=== PATIENT | female | born 1960 | race Caucasian/White ===

== ENCOUNTER 2018-11-20 23:58 | Emergency (ER) | payer BC ==
[~2018-11-20] VITALS: Ht 152.4 cm; Wt 99.8 kg
[2018-11-21 00:03] VITALS: BP 150/78
--- NOTE | 2018-11-21 00:03 | NUR ---
TO BED #09 AMBULATORY
--- NOTE | 2018-11-21 00:15 | NUR ---
PT BIB DAUGHTER C/O COUGHING AND SOB X2 DAYS. PT STATES SUDDEN ONSET OF PRODUCTIVE COUGHING W/ THIN GREEN MUCOUS STARTED YESTERDAY, PT STATES THE CHANGES IN THE WHEATHER EXACERBATES HER ASHTMA/COUGHING. PT STATES 0/10 PAIN AT THIS TIME, DENIES N/V/D, OR CP. PT SPO2 AT BEDSIDE MONITOR WAS 89%, PATIENT PLACED ON 3L NC AT THIS TIME, SATURATION UP TO 96%. --AUDIBLE WHEEZING BL. BREATHING EQUAL AND LABORED. TACHYCARDIC AT 133. PT IN GOWN, IN BED; BED IN LOWER LOCKED POSITION, BEDRAILS UP X2. PENDING ER MD DILLARD. WILL CONTINUE TO MONITOR. PMH: ASTHMA, HTN
--- NOTE | 2018-11-21 00:22 | NUR ---
Dr. Lacy evaluating patient at bedside.
[2018-11-21] MEDS ORDERED: ALBUTEROL SULFATE/IPRATROPIU 3 ML SOL IH ONE ×2 (00:25→00:55)
[2018-11-21] MEDS ORDERED: methylPREDNISolone SS 125 MG/2 ML VIAL IM ONE (00:25)
--- NOTE | 2018-11-21 00:25 | NUR ---
X-RAY AT BEDSIDE.
--- NOTE | 2018-11-21 00:34 | NUR ---
Respiratory Therapist at bedside for respiratory intervention.
[2018-11-21 01:34] VITALS: BP 147/78
--- NOTE | 2018-11-21 01:35 | NUR ---
Patient discharged with v/s stable. Written and verbal after care instructions given and explained. Patient alert, oriented and verbalized understanding of instructions. Ambulatory with steady gait. All questions addressed prior to discharge. ID band removed. Patient advised to follow up with PMD. Rx of albuterol, prednisone, promethazine given. Patient educated on indication of medication including possible reaction and side effects. Opportunity to ask questions provided and answered.
== END 2018-11-21 01:35 | disposition home or self-care (01) ==
LOC: MED 23:58
DX: J44.1 Chronic obstructive pulmonary disease with (acute) exacerbation (principal)
CPT/HCPCS: 71045; 94640; 96372; 99284; J2930; J7620; Q0092

== ENCOUNTER 2018-11-25 12:01 | Emergency (ER) | payer BC ==
[~2018-11-25] VITALS: Ht 152.4 cm; Wt 86.6 kg
[2018-11-25 12:04] VITALS: BP 139/86
--- NOTE | 2018-11-25 12:10 | NUR ---
PT AMBULATED TO ED BED 11
--- NOTE | 2018-11-25 12:23 | NUR ---
PT PRESENTS TO ED WITH C/O DIFFICULTY BREATHING X1 WEEK. PT DENIES N/V OR FEVER. WAS SEEN BY ER MD YESTERDAY WITH INHALER PRESCRIPTION. PT STATED NOT TAKING INHALER TODAY. AAO X4, GCS 15, ABLE TO SPEAK WITH FULL COMPLETE SENTENCES. RESPIATIONS EVEN AND UNLABORED, BL LUNG CLEAR. C/O NON PRDUCTIVE COUGH AT THIS TIME. SKIN WARM/PINK/DRY, +PMSC. VS, TACHYCARDIA , NH 110'S. DENIEES PAIN AT THIS TIME. MADE AWARE OF PT STATUS. WILL CONTINUE TO MONITOR
--- NOTE | 2018-11-25 12:26 | NUR ---
MADE AWARE OF PT STATUS
[2018-11-25] MEDS ORDERED: ALBUTEROL SULFATE/IPRATROPIU 3 ML SOL IH ONE (12:30)
[2018-11-25] MEDS ORDERED: predniSONE 20 MG TAB PO ONE (12:30)
--- NOTE | 2018-11-25 12:40 | NUR ---
Respiratory Therapist at bedside for respiratory intervention. Patient tolerated WELL.
--- NOTE | 2018-11-25 12:40 | NUR ---
ADMITTING DX: DIFFICULTY BREATHING HX: COPD DENIES ASTHMA AWAKE AND ALERT EDUCATION PROVIDED WITH ACKNOWLEDGEMENT ON HHN THERAPY AND RESPIRATORY DRUG FOREMENTIONED GIVEN ORDERED ENCOURAGED PATIENT FOR DEEP BREATHING AND COUGH DURING THERAPY TOLERATED WELL WITHOUT INCIDENT
--- NOTE | 2018-11-25 12:40 | NUR ---
PO MEDS GIVEN-NADR AT THIS TIME.
[2018-11-25] MEDS ORDERED: DIAZEPAM 5 MG TAB PO ONE (13:50)
--- NOTE | 2018-11-25 14:15 | NUR ---
Patient discharged with v/s stable. Written and verbal after care instructions given and explained. Patient alert, oriented and verbalized understanding of instructions. Ambulatory with steady gait. All questions addressed prior to discharge. ID band removed. Patient advised to follow up with PMD. RxPREDNISONE 50 MG, GUAIATUSSIN 100/10 M/5ML, ALBUTEROL 90 MCG/ACTUATION given. Patient educated on indication of medication including possible reaction and side effects. Opportunity to ask questions provided and answered.
[2018-11-25 14:31] VITALS: BP 133/82
== END 2018-11-25 14:15 | disposition home or self-care (01) ==
LOC: MED 12:01
DX: J20.9 Acute bronchitis, unspecified (principal); M62.838 Other muscle spasm; J44.9 Chronic obstructive pulmonary disease, unspecified; I10 Essential (primary) hypertension; F17.210 Nicotine dependence, cigarettes, uncomplicated
CPT/HCPCS: 71045; 94640; 99283; J7512; J7620; Q0092